=== PATIENT | female | born 1975 | race Caucasian/White ===

== ENCOUNTER → 2016-06-27 | Outpatient (CLI) | payer MEDICAID ==
[~2016-06-27] MED LIST: ALLEGRA-D 12 H1 EACH PO; FLEXERIL10 MG PO; FLONASE16 GM NASBOTH; MOBIC15 M1 PO; NORCO 5-325 TA1 EACH PO; SINGULAIR10 MG PO; ZANTAC300 MG PO
== END | disposition short-term general hospital (02) ==
LOC: CLOBGYN 08:22
DX: N93.8 Other specified abnormal uterine and vaginal bleeding (principal); N92.0 Excessive and frequent menstruation with regular cycle; D50.0 Iron deficiency anemia secondary to blood loss (chronic)

== ENCOUNTER → 2016-07-25 | Outpatient (CLI) | payer MEDICAID | END | disposition short-term general hospital (02) | LOC: CLOBGYN 11:14 | DX: N92.0 Excessive and frequent menstruation with regular cycle (principal); D64.9 Anemia, unspecified; R87.611 Atypical squamous cells cannot exclude high grade squamous intraepithelial lesion on cytologic smear of cervix (ASC-H) ==

== ENCOUNTER → 2016-08-16 | Outpatient (CLI) | payer MEDICAID | END | disposition short-term general hospital (02) | LOC: CLOBGYN 10:53 | DX: N87.9 Dysplasia of cervix uteri, unspecified (principal); N93.8 Other specified abnormal uterine and vaginal bleeding ==